=== PATIENT | female | born 1985 | race Caucasian/White ===

== ENCOUNTER 2018-07-14 08:36 | Emergency (ER) | payer MEDICAID ==
[2018-07-14 09:14] LABS: URINE BLOOD (Dip) POC Trace-lysed (NEGATIVE); URINE GLUCOSE (Dip) POC Negative (NEGATIVE); URINE KETONES (Dip) POC Negative (NEGATIVE); URINE LEUKOCYTE EST (Dip) POC 2+ (NEGATIVE); URINE NITRITE (Dip) POC Positive (NEGATIVE); URINE TOTAL PROTEIN POC Negative (NEGATIVE)
[2018-07-14 09:14] LABS: URINE PH (Dip) POC 5.5 (5.0-8.5)
[2018-07-14] MEDS: CEFTRIAXONE 1 GM INJ IM (09:40)
[2018-07-14] MEDS: LIDOCAINE 1% (MPF) 5 ML VIAL INJ (09:40)
== END 2018-07-14 09:43 | disposition home or self-care (01) ==
LOC: FTE 08:36
DX: N39.0 Urinary tract infection, site not specified (principal)
CPT/HCPCS: 81003; 81025; 96372; 99284-25